=== PATIENT | male | born 1960 | race American Indian/Alaskan Native ===

== ENCOUNTER 2017-04-18 04:55 | Emergency (ER) | payer OTHER ==
[2017-04-18 05:03] VITALS: BP 163/150
--- NOTE | 2017-04-18 05:29 | EDM.PDOC ---
<Shaheed Constantino - Last Filed: 04/18/17 07:45> ED HPI GENERAL MEDICAL PROBLEM - General Chief Complaint: Respiratory Problem Stated Complaint: [facility] Time Seen by Provider: 04/18/17 05:10 - Related Data Allergies Allergy/AdvReac Type Severity Reaction Status Date / Time No Known Allergies Allergy Verified 04/18/17 05:00 Home Meds: Home Meds Aspirin/Caffeine [[place] Back & Body Caplet] 500 mg PO DAILY 03/25/16 [History] Cyanocobalamin (Vitamin B12) [Vitamin B12] 1,000 mcg PO DAILY 03/25/16 [History] Hydrochlorothiazide 50 mg PO DAILY 03/25/16 [History] Lisinopril [Zestril] 40 mg PO DAILY 03/25/16 [History] SitaGLIPtin [Januvia] 100 mg PO DAILY 03/25/16 [History] amLODIPine [Norvasc] 5 mg PO DAILY 03/25/16 [History] ED RESPIRATORY PROCEDURES - Endotracheal Intubation Time of Intubation: 07:36 ET Intubation Indication: Respiratory Failure Preparation: Suction, Balloon Tested, BVM Set Up, Difficult Airway Equip Airway Assessment: Obese, Large Tongue Pre-Oxygenation: Assisted with BVM, 100% FiO2 Anesthesia Meds: Etomidate (48 mg IVP), Vecuronium (16 mg IVP) Placement: Orotracheal, Cuffed, Uncomplicated Placement Cords Visualized: Yes, Grade 3 ETT Size In mm: 8.0 Number of Attempts: 1 Confirmed By: CO2 Indicator, Bilateral Breath Sounds, Chest Xray Tube Secured By: By RT Course - Vital Signs Last Recorded V/S: Last Vital Signs Temp 37.1 C 04/18/17 05:00 Pulse 78 04/18/17 06:18 Resp 18 04/18/17 05:00 BP 163/150 H 04/18/17 05:00 Pulse Ox 91 L 04/18/17 05:00 - Orders/Labs/Meds Orders: Active Orders 24 hr Category Date Time Status Blood Glucose Check, Bedside [RC] ONETIME Care 04/18/17 05:23 Active Blood Glucose Check, Bedside [RC] ONETIME Care 04/18/17 08:18 Active EKG 12 Lead [EKG Documentation Completion] [RC] STAT Care 04/18/17 05:12 Active EKG Documentation Completion [RC] STAT Care 04/18/17 05:23 Active Oxygen Therapy [RC] ASDIRECTED Care 04/18/17 05:23 Active Oxygen Therapy [RC] ASDIRECTED Care 04/18/17 05:38 Active RT Aerosol Therapy [RC] ASDIRECTED Care 04/18/17 06:07 Active RT Aerosol Therapy [RC] ASDIRECTED Care 04/18/17 06:16 Active RT Aerosol Therapy [RC] ASDIRECTED Care 04/18/17 06:18 Active RT Aerosol Therapy [RC] ASDIRECTED Care 04/18/17 06:23 Active RT BiPAP/CPAP [RC] ASDIRECTED Care 04/18/17 05:52 Active ABG [BLOOD GAS ARTERIAL] [BG] Stat Lab 04/18/17 08:11 Ordered CULTURE BLOOD [BC] Stat Lab 04/18/17 05:50 Received CULTURE BLOOD [BC] Stat Lab 04/18/17 06:05 Received CULTURE URINE [RM] Stat Lab 04/18/17 05:34 Received Insulin Regular, Human [HumuLIN R] 100 unit Med 04/18/17 06:45 Active Sodium Chloride 0.9% [Normal Saline] 99 ml IV TITRATE Norepinephrine [Levophed] 4 mg Med 04/18/17 08:15 Active Dextrose 5% in Water 246 ml IV TITRATE Propofol [Diprivan 100 ML] 100 ml Med 04/18/17 08:30 Active IV TITRATE Blood Culture x2 Reflex Set [OM.PC] Stat Oth 04/18/17 05:26 Ordered Desired Level of Sedation (RASS) [AST] Click To Edit Oth 04/18/17 08:18 Ordered Medication Orders Insulin Human Regular 100 unit (/ Sodium Chloride) 100 mls @ 7 mls/hr IV TITRATE IVANA; 7 UNIT/HR PRN Reason: Protocol Last Admin: 04/18/17 06:38 Dose: 7 unit/hr, 7 mls/hr Norepinephrine Bitartrate 4 mg (/ Dextrose/Water) 250 mls @ 18.75 mls/hr IV TITRATE IVANA; 5 MCG/MIN PRN Reason: Protocol Propofol (Diprivan 100 Ml) 100 mls @ 0 mls/hr IV TITRATE IVANA; 5 MCG/KG/MIN PRN Reason: Protocol Labs: Laboratory Tests 04/18/17 04/18/17 04/18/17 Range/Units 05:09 05:09 05:20 WBC 15.79 H (4.23-9.07) K/mm3 RBC 4.16 L (4.63-6.08) M/mm3 Hgb 11.2 L (13.7-17.5) gm/L Hct 36.6 L (40.1-51.0) % MCV 88.0 (79.0-92.2) fl MCH 26.9 (25.7-32.2) pg MCHC 30.6 L (32.2-35.5) g/dl RDW Std Deviation 50.6 H (35.1-43.9) fL Plt Count 166 (163-337) K/mm3 MPV 10.9 (9.4-12.3) fl Neutrophils % (Manual) 88 H (40-60) % Band Neutrophils % 1 (0-10) % Lymphocytes % (Manual) 7 L (20-40) % Atypical Lymphs % 0 % Monocytes % (Manual) 2 (2-10) % Eosinophils % (Manual) 1 (0.8-7.0) % Basophils % (Manual) 1 (0.2-1.2) Platelet Estimate Adequate RBC Morph Comment Normal PT (8.0-13.0) SECONDS INR Puncture Site Lt radial ABG pH 7.09 L* (7.35-7.45) ABG pCO2 78.8 H* (35.0-45.0) mmHg ABG pO2 135.0 H (80.0-100.0) mmHg ABG HCO3 23.0 (22.0-26.0) meq/L ABG O2 Saturation 95.8 L (96.0-97.0) % ABG Base Excess -7.9 L (-2-2.0) Ga Test Positive A-a Gradient 406 mmHg O2 Delivery Device Nonrebreather Oxygen Flow Rate 15.0 FiO2 100.00 (21.00-100.00) % Tidal Volume cc PEEP cmH20 Pressure Support cmH2O Sodium 136 (136-145) mEq/L Potassium 7.0 H* (3.5-5.1) mEq/L Chloride 99 (98-107) mEq/L Carbon Dioxide 25 (21-32) mEq/L Anion Gap 19.0 H (5-15) BUN 63 H (7-18) mg/dL Creatinine 8.7 H (0.7-1.3) mg/dL Est Cr Clr Drug Dosing TNP Estimated GFR (MDRD) 6 (>60) mL/min BUN/Creatinine Ratio 7.2 L (14-18) Glucose 460 H (74-106) mg/dL POC Glucose (70-105) mg/dL Lactic Acid (0.4-2.0) mmol/L Calcium 7.4 L (8.5-10.1) mg/dL Total Bilirubin 0.2 (0.2-1.0) mg/dL AST 37 (15-37) U/L ALT 38 (16-63) U/L Alkaline Phosphatase 94 (46-116) U/L CK-MB (CK-2) 8.3 H (0-3.6) ng/ml Troponin I 0.262 H* (0.00-0.056) ng/mL C-Reactive Protein 1.8 H* (<1.0) mg/dL NT-Pro-B Natriuret Pep 63115 H (0-125) pg/mL Total Protein 7.5 (6.4-8.2) g/dl Albumin 3.3 L (3.4-5.0) g/dl Globulin 4.2 gm/dL Albumin/Globulin Ratio 0.8 L (1-2) Urine Color (Yellow) Urine Appearance (Clear) Urine pH (5.0-8.0) Ur Specific [place] (1.005-1.030) Urine Protein (Negative) Urine Glucose (UA) (Negative) Urine Ketones (Negative) Urine Occult Blood (Negative) Urine Nitrite (Negative) Urine Bilirubin (Negative) Urine Urobilinogen (0.2-1.0) Ur Leukocyte Esterase (Negative) Urine RBC (0-5) /hpf Urine WBC (0-5) /hpf Ur Epithelial Cells (0-5) /hpf Amorphous Sediment (NOT SEEN) /hpf Urine Bacteria (FEW) /hpf Urine Mucus (FEW) /hpf 04/18/17 04/18/17 04/18/17 Range/Units 05:34 05:50 05:50 WBC (4.23-9.07) K/mm3 RBC (4.63-6.08) M/mm3 Hgb (13.7-17.5) gm/L Hct (40.1-51.0) % MCV (79.0-92.2) fl MCH (25.7-32.2) pg MCHC (32.2-35.5) g/dl RDW Std Deviation (35.1-43.9) fL Plt Count (163-337) K/mm3 MPV (9.4-12.3) fl Neutrophils % (Manual) (40-60) % Band Neutrophils % (0-10) % Lymphocytes % (Manual) (20-40) % Atypical Lymphs % % Monocytes % (Manual) (2-10) % Eosinophils % (Manual) (0.8-7.0) % Basophils % (Manual) (0.2-1.2) Platelet Estimate RBC Morph Comment PT 11.1 (8.0-13.0) SECONDS INR 1.02 Puncture Site ABG pH (7.35-7.45) ABG pCO2 (35.0-45.0) mmHg ABG pO2 (80.0-100.0) mmHg ABG HCO3 (22.0-26.0) meq/L ABG O2 Saturation (96.0-97.0) % ABG Base Excess (-2-2.0) Ga Test A-a Gradient mmHg O2 Delivery Device Oxygen Flow Rate FiO2 (21.00-100.00) % Tidal Volume cc PEEP cmH20 Pressure Support cmH2O Sodium (136-145) mEq/L Potassium (3.5-5.1) mEq/L Chloride (98-107) mEq/L Carbon Dioxide (21-32) mEq/L Anion Gap (5-15) BUN (7-18) mg/dL Creatinine (0.7-1.3) mg/dL Est Cr Clr Drug Dosing Estimated GFR (MDRD) (>60) mL/min BUN/Creatinine Ratio (14-18) Glucose (74-106) mg/dL POC Glucose (70-105) mg/dL Lactic Acid 0.8 (0.4-2.0) mmol/L Calcium (8.5-10.1) mg/dL Total Bilirubin (0.2-1.0) mg/dL AST (15-37) U/L ALT (16-63) U/L Alkaline Phosphatase (46-116) U/L CK-MB (CK-2) (0-3.6) ng/ml Troponin I (0.00-0.056) ng/mL C-Reactive Protein (<1.0) mg/dL NT-Pro-B Natriuret Pep (0-125) pg/mL Total Protein (6.4-8.2) g/dl Albumin (3.4-5.0) g/dl Globulin gm/dL Albumin/Globulin Ratio (1-2) Urine Color Lauryn H (Yellow) Urine Appearance Slt cloudy H (Clear) Urine pH 7.0 (5.0-8.0) Ur Specific [place] 1.025 (1.005-1.030) Urine Protein 3+ H (Negative) Urine Glucose (UA) Trace H (Negative) Urine Ketones Negative (Negative) Urine Occult Blood 2+ H (Negative) Urine Nitrite Negative (Negative) Urine Bilirubin 1+ H (Negative) Urine Urobilinogen 0.2 (0.2-1.0) Ur Leukocyte Esterase 1+ H (Negative) Urine RBC 5-10 H (0-5) /hpf Urine WBC 20-30 H (0-5) /hpf Ur Epithelial Cells 0-5 (0-5) /hpf Amorphous Sediment Few H (NOT SEEN) /hpf Urine Bacteria Many H (FEW) /hpf Urine Mucus Few (FEW) /hpf 04/18/17 04/18/17 04/18/17 Range/Units 06:50 08:00 08:16 WBC (4.23-9.07) K/mm3 RBC (4.63-6.08) M/mm3 Hgb (13.7-17.5) gm/L Hct (40.1-51.0) % MCV (79.0-92.2) fl MCH (25.7-32.2) pg MCHC (32.2-35.5) g/dl RDW Std Deviation (35.1-43.9) fL Plt Count (163-337) K/mm3 MPV (9.4-12.3) fl Neutrophils % (Manual) (40-60) % Band Neutrophils % (0-10) % Lymphocytes % (Manual) (20-40) % Atypical Lymphs % % Monocytes % (Manual) (2-10) % Eosinophils % (Manual) (0.8-7.0) % Basophils % (Manual) (0.2-1.2) Platelet Estimate RBC Morph Comment PT (8.0-13.0) SECONDS INR Puncture Site Lt radial Rt radial ABG pH 7.19 L* 7.16 L* (7.35-7.45) ABG pCO2 65.3 H 67.7 H (35.0-45.0) mmHg ABG pO2 76.0 L 68.0 L (80.0-100.0) mmHg ABG HCO3 23.7 23.3 (22.0-26.0) meq/L ABG O2 Saturation 94.0 L 88.3 L (96.0-97.0) % ABG Base Excess -5.8 L (-2-2.0) Ga Test Positive A-a Gradient 73 295 mmHg O2 Delivery Device Bipap Ventilator Oxygen Flow Rate FiO2 36.00 70.00 (21.00-100.00) % Tidal Volume 450.0 cc PEEP 8.0 cmH20 Pressure Support 18.0 cmH2O Sodium (136-145) mEq/L Potassium (3.5-5.1) mEq/L Chloride (98-107) mEq/L Carbon Dioxide (21-32) mEq/L Anion Gap (5-15) BUN (7-18) mg/dL Creatinine (0.7-1.3) mg/dL Est Cr Clr Drug Dosing Estimated GFR (MDRD) (>60) mL/min BUN/Creatinine Ratio (14-18) Glucose (74-106) mg/dL POC Glucose 381 H (70-105) mg/dL Lactic Acid (0.4-2.0) mmol/L Calcium (8.5-10.1) mg/dL Total Bilirubin (0.2-1.0) mg/dL AST (15-37) U/L ALT (16-63) U/L Alkaline Phosphatase (46-116) U/L CK-MB (CK-2) (0-3.6) ng/ml Troponin I (0.00-0.056) ng/mL C-Reactive Protein (<1.0) mg/dL NT-Pro-B Natriuret Pep (0-125) pg/mL Total Protein (6.4-8.2) g/dl Albumin (3.4-5.0) g/dl Globulin gm/dL Albumin/Globulin Ratio (1-2) Urine Color (Yellow) Urine Appearance (Clear) Urine pH (5.0-8.0) Ur Specific [place] (1.005-1.030) Urine Protein (Negative) Urine Glucose (UA) (Negative) Urine Ketones (Negative) Urine Occult Blood (Negative) Urine Nitrite (Negative) Urine Bilirubin (Negative) Urine Urobilinogen (0.2-1.0) Ur Leukocyte Esterase (Negative) Urine RBC (0-5) /hpf Urine WBC (0-5) /hpf Ur Epithelial Cells (0-5) /hpf Amorphous Sediment (NOT SEEN) /hpf Urine Bacteria (FEW) /hpf Urine Mucus (FEW) /hpf Meds: Medications Generic Name Dose Route Start Last Admin Trade Name Freq PRN Reason Stop Dose Admin Insulin Human Regular 100 unit 100 mls @ 7 mls/hr 04/18/17 06:45 04/18/17 06: 38 / Sodium Chloride IV 7 unit/hr TITRATE IVANA 7 mls/hr Protocol Administration 7 UNIT/HR Norepinephrine Bitartrate 4 mg 250 mls @ 18.75 mls/hr 04/18/17 08:15 / Dextrose/Water IV TITRATE IVANA Protocol 5 MCG/MIN Propofol 100 mls @ 0 mls/hr 04/18/17 08:30 Diprivan 100 Ml IV TITRATE IVANA Protocol 5 MCG/KG/MIN Discontinued Medications Generic Name Dose Route Start Last Admin Trade Name Freq PRN Reason Stop Dose Admin Albuterol 10 mg 04/18/17 06:06 Proventil Neb Soln NEB 04/18/17 06:07 ONETIME ONE Albuterol Confirm 04/18/17 06:14 04/18/17 06:39 Proventil Administered 04/18/17 06:15 Not Given Dose 10 mg .ROUTE .STK-MED ONE Albuterol 10 mg 04/18/17 06:16 Proventil Neb Soln NEB 04/18/17 06:17 ONETIME ONE Albuterol 10 mg 04/18/17 10:00 Proventil Neb Soln NEB QIDRT IVANA Albuterol 2.5 mg 04/18/17 06:23 Proventil Neb Soln NEB 04/18/17 06:24 ONETIME ONE Albuterol 10 mg 04/18/17 06:45 04/18/17 06:18 Proventil NEB 04/18/17 06:46 10 mg ONETIME ONE Administration Calcium Gluconate 1 gm 04/18/17 06:07 04/18/17 06:20 Calcium Gluconate IVPUSH 04/18/17 06:08 1 gm ONETIME ONE Administration Etomidate Confirm 04/18/17 07:21 Amidate Administered 04/18/17 07:22 Dose 40 mg IVPUSH .STK-MED ONE Etomidate 48 mg 04/18/17 08:12 Amidate IVPUSH 04/18/17 08:13 ONETIME ONE Insulin Human Regular 100 unit 100 mls @ 0 mls/hr 04/18/17 06:15 / Sodium Chloride IV ASDIRECTED IVANA Protocol 7 UNITS/KG/HR Insulin Human Regular 100 unit 100 mls @ 7 mls/hr 04/18/17 06:45 / Sodium Chloride IV TITRATE IVANA 7 UNIT/HR Ceftriaxone Sodium 2 gm/ 100 mls @ 200 mls/hr 04/18/17 07:20 Sodium Chloride IV 04/18/17 07:49 ONETIME ONE Propofol Confirm 04/18/17 07:29 Diprivan 100 Ml Administered 04/18/17 07:30 Dose 100 mls @ as directed .ROUTE .STK-MED ONE Sodium Bicarbonate 50 meq 04/18/17 06:07 04/18/17 06:28 Sodium Bicarbonate 8.4% IVPUSH 04/18/17 06:08 50 meq ONETIME ONE Administration Vecuronium [place] Confirm 04/18/17 08:12 Vecuronium Administered 04/18/17 08:13 Dose 20 mg .ROUTE .STK-MED ONE Vecuronium [place] 16 mg 04/18/17 08:12 Vecuronium IVPUSH 04/18/17 08:13 ONETIME ONE Departure - Departure Disposition: DC/Tfer to [facility] Clinical Impression: Acute respiratory failure with hypercapnia, Hemodialysis patient, Hyperkalemia , diminished renal excretion, Elevated troponin I measurement, Bacteriuria with pyuria Hyperglycemia due to type 2 diabetes mellitus Qualifiers: Diabetes mellitus care home insulin use: without care home use Qualified Code(s ): E11.65 - Type 2 diabetes mellitus with hyperglycemia - Discharge Information Referrals: PCP,None [Primary Care Provider] - Forms: ED Department Discharge - My Orders Last 24 Hours: My Active Orders 04/18/17 05:12 EKG 12 Lead [EKG Documentation Completion] [RC] STAT 04/18/17 05:23 Blood Glucose Check, Bedside [RC] ONETIME EKG Documentation Completion [RC] STAT Oxygen Therapy [RC] ASDIRECTED 04/18/17 05:26 Blood Culture x2 Reflex Set [OM.PC] Stat 04/18/17 05:34 CULTURE URINE [RM] Stat 04/18/17 05:38 Oxygen Therapy [RC] ASDIRECTED 04/18/17 05:50 CULTURE BLOOD [BC] Stat 04/18/17 05:52 RT BiPAP/CPAP [RC] ASDIRECTED 04/18/17 06:05 CULTURE BLOOD [BC] Stat 04/18/17 06:07 RT Aerosol Therapy [RC] ASDIRECTED 04/18/17 06:16 RT Aerosol Therapy [RC] ASDIRECTED 04/18/17 06:18 RT Aerosol Therapy [RC] ASDIRECTED 04/18/17 06:23 RT Aerosol Therapy [RC] ASDIRECTED 04/18/17 06:45 Insulin Regular, Human [HumuLIN R] 100 unit Sodium Chloride 0.9% [Normal Saline] 99 ml IV TITRATE 04/18/17 08:11 ABG [BLOOD GAS ARTERIAL] [BG] Stat 04/18/17 08:15 Norepinephrine [Levophed] 4 mg Dextrose 5% in Water 246 ml IV TITRATE 04/18/17 08:18 Blood Glucose Check, Bedside [RC] ONETIME Desired Level of Sedation (RASS) [AST] Click To Edit 04/18/17 08:30 Propofol [Diprivan 100 ML] 100 ml IV TITRATE - Assessment/Plan Last 24 Hours: My Active Orders 04/18/17 05:12 EKG 12 Lead [EKG Documentation Completion] [RC] STAT 04/18/17 05:23 Blood Glucose Check, Bedside [RC] ONETIME EKG Documentation Completion [RC] STAT Oxygen Therapy [RC] ASDIRECTED 04/18/17 05:26 Blood Culture x2 Reflex Set [OM.PC] Stat 04/18/17 05:34 CULTURE URINE [RM] Stat 04/18/17 05:38 Oxygen Therapy [RC] ASDIRECTED 04/18/17 05:50 CULTURE BLOOD [BC] Stat 04/18/17 05:52 RT BiPAP/CPAP [RC] ASDIRECTED 04/18/17 06:05 CULTURE BLOOD [BC] Stat 04/18/17 06:07 RT Aerosol Therapy [RC] ASDIRECTED 04/18/17 06:16 RT Aerosol Therapy [RC] ASDIRECTED 04/18/17 06:18 RT Aerosol Therapy [RC] ASDIRECTED 04/18/17 06:23 RT Aerosol Therapy [RC] ASDIRECTED 04/18/17 06:45 Insulin Regular, Human [HumuLIN R] 100 unit Sodium Chloride 0.9% [Normal Saline] 99 ml IV TITRATE 04/18/17 08:11 ABG [BLOOD GAS ARTERIAL] [BG] Stat 04/18/17 08:15 Norepinephrine [Levophed] 4 mg Dextrose 5% in Water 246 ml IV TITRATE 04/18/17 08:18 Blood Glucose Check, Bedside [RC] ONETIME Desired Level of Sedation (RASS) [AST] Click To Edit 04/18/17 08:30 Propofol [Diprivan 100 ML] 100 ml IV TITRATE <Guzman Pavon - Last Filed: 04/18/17 09:24> ED HPI GENERAL MEDICAL PROBLEM - General Source of Information: Reports: Patient, EMS History Limitations: Reports: Physical Impairment, Respiratory Distress, Other ( Very poor historian.) - History of Present Illness INITIAL COMMENTS - FREE TEXT/NARRATIVE: 56-year-old male of [place] arrives in the ED per [facility] ambulance. Apparently he was struggling with respiratory issues and ambulance was summoned. Patient is a hemodialysis patient and receives dialysis 3 times weekly. Reports his last dialysis was Sunday this week and he is due for dialysis today. He feels very short of breath and taken 15 L/m by me nonrebreather mask to maintain his O2 sats in the 90s. Blood pressure reported by paramedics initially was 71 systolic. He is currently 103 on 66. Patient does answer most questions but is a very poor historian. He is a type II diabetic and uses Junuvia 100mg od for control. Denies any central chest pain over the weekend or last few days. Denies cough or sputum production. Denies fever or chills. He denies any dysuria makes very little urine anymore. He is morbidly obese and I suspect has sleep apnea syndrome. It's unclear whether he uses CPAP at bedtime. Onset: Today Onset Date: 04/18/17 Onset Time: 02:25 Duration: Hour(s): Location: Reports: Generalized Quality: Reports: Other (Short of breath) Severity: Severe Improves with: Reports: None Worsens with: Reports: Movement Context: Reports: Other. Denies: Activity, Exercise, Lifting, Sick Contact, Trauma Associated Symptoms: Reports: Confusion, Malaise, Shortness of Breath, Weakness (Generalized unable to weight-bear or walk.). 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 (see below) (None.) Past Medical History HEENT History: Reports: Impaired Vision Other HEENT History: Glasses Cardiovascular History: Reports: Hypertension Respiratory History: Reports: COPD, Sleep Apnea, SOB Genitourinary History: Reports: Dialysis Musculoskeletal History: Reports: Osteoarthritis Endocrine/Metabolic History: Reports: Diabetes, Type II Hematologic History: Reports: Blood Transfusion(s) - Past Surgical History Head Surgeries/Procedures: Reports: None GI Surgical History: Reports: Appendectomy Social & Family History - Family History Cardiac: Reports: Heart Failure - Tobacco Use Smoking Status *Q: Never Smoker - Caffeine Use Caffeine Use: Reports: Coffee - Recreational Drug Use Recreational Drug Use: No - Living Situation & Occupation Living situation: Reports: Single Occupation: Unemployed ED ROS GENERAL - Review of Systems Review Of Systems: See Below Constitutional: Reports: Malaise, Weakness, Fatigue, Decreased Appetite. Denies : Fever, Chills, Weight Loss HEENT: Reports: No Symptoms Respiratory: Reports: Shortness of Breath. Denies: Wheezing, Pleuritic Chest Pain, Cough, Sputum, Hemoptysis, Other Cardiovascular: Reports: Blood Pressure Problem (Chronic hypertension.), Dyspnea on Exertion (Mild in his lower extremities), Edema. Denies: Chest Pain , Claudication, Lightheadedness, Orthopnea, Palpitations ( chronically) Endocrine: Reports: Fatigue GI/Abdominal: Denies: Abdominal Pain, Constipation, Diarrhea, Decreased Appetite , Difficulty Swallowing, Distension, Flatus, Hematemesis, Hematochezia, Melena : Reports: Other (States he makes less than half a cup of urine per day.) Musculoskeletal: Reports: Back Pain, Joint Pain (Knees and hips back and neck at times) Skin: Reports: No Symptoms Neurological: Reports: No Symptoms Psychiatric: Reports: No Symptoms ED EXAM, GENERAL - Physical Exam Exam: See Below Exam Limited By: Other (Mildly confused. Appears acutely ill.) General Appearance: Lethargic (Breathing through a 15 L nonrebreather mask.), Moderate Distress Eye Exam: Bilateral Eye: Normal Inspection (No jaundice.) Throat/Mouth: Normal Inspection, Normal Oropharynx Head: Atraumatic, Normocephalic Neck: Normal Inspection, Supple, Non-Tender, Full Range of Motion, Other (No JVD.). No: Carotid Bruit, Lymphadenopathy (L), Lymphadenopathy (R), Thyromegaly Respiratory/Chest: No Respiratory Distress, Decreased Breath Sounds (Breath sounds are severely diminished throughout both lung powell. No adventitial sounds were appreciated as his breathing is quite shallow.). No: Rales, Rhonchi , Wheezing Cardiovascular: Extra Beats, Irregularly Irregular (Frequent ectopic beats appreciated. On the monitor they appear to be PVCs.). No: Normal Peripheral Pulses, JVD Peripheral Pulses: 0: Posterior Tibial (L), Posterior Tibial (R), Dorsalis Pedis (L), Dorsalis Pedis (R), 1+: Carotid (L), Carotid (R) (Very thick bull neck.), Radial (L), Radial (R) GI/Abdominal: Other (Abdominal girth limits ability to palpate solid organs but I question whether or not he has significant splenomegaly and perhaps hepatomegaly.) (Male) Exam: No Hernia Extremities: Pedal Edema (2+ edema in his lower extremities.) Neurological: Inattentive, Confused, Slow to Respond (Areflexic.). No: Alert, Oriented, CN II-XII Intact, Normal Cognition, Normal Gait, Normal Reflexes Skin Exam: Warm, Dry, Intact, Normal Color, No Rash EKG INTERPRETATION EKG Date: 04/18/17 Time: 05:15 Rhythm: NSR Rate (Beats/Min): 83 [place]: RAD-Right [place] Deviation P-Wave: Present QRS: Other (Nonspecific intraventricular conduction delay.) ST-T: Other (Abnormal repolarization pattern. No definitive ischemic changes.) QT: Prolonged Course - Orders/Labs/Meds Labs: Laboratory Tests 04/18/17 04/18/17 04/18/17 Range/Units 05:09 05:09 05:20 WBC 15.79 H (4.23-9.07) K/mm3 RBC 4.16 L (4.63-6.08) M/mm3 Hgb 11.2 L (13.7-17.5) gm/L Hct 36.6 L (40.1-51.0) % MCV 88.0 (79.0-92.2) fl MCH 26.9 (25.7-32.2) pg MCHC 30.6 L (32.2-35.5) g/dl RDW Std Deviation 50.6 H (35.1-43.9) fL Plt Count 166 (163-337) K/mm3 MPV 10.9 (9.4-12.3) fl Neutrophils % (Manual) 88 H (40-60) % Band Neutrophils % 1 (0-10) % Lymphocytes % (Manual) 7 L (20-40) % Atypical Lymphs % 0 % Monocytes % (Manual) 2 (2-10) % Eosinophils % (Manual) 1 (0.8-7.0) % Basophils % (Manual) 1 (0.2-1.2) Platelet Estimate Adequate RBC Morph Comment Normal PT (8.0-13.0) SECONDS INR Puncture Site Lt radial ABG pH 7.09 L* (7.35-7.45) ABG pCO2 78.8 H* (35.0-45.0) mmHg ABG pO2 135.0 H (80.0-100.0) mmHg ABG HCO3 23.0 (22.0-26.0) meq/L ABG O2 Saturation 95.8 L (96.0-97.0) % ABG Base Excess -7.9 L (-2-2.0) Ga Test Positive A-a Gradient 406 mmHg O2 Delivery Device Nonrebreather Oxygen Flow Rate 15.0 FiO2 100.00 (21.00-100.00) % Tidal Volume cc PEEP cmH20 Pressure Support cmH2O Sodium 136 (136-145) mEq/L Potassium 7.0 H* (3.5-5.1) mEq/L Chloride 99 (98-107) mEq/L Carbon Dioxide 25 (21-32) mEq/L Anion Gap 19.0 H (5-15) BUN 63 H (7-18) mg/dL Creatinine 8.7 H (0.7-1.3) mg/dL Est Cr Clr Drug Dosing TNP Estimated GFR (MDRD) 6 (>60) mL/min BUN/Creatinine Ratio 7.2 L (14-18) Glucose 460 H (74-106) mg/dL POC Glucose (70-105) mg/dL Lactic Acid (0.4-2.0) mmol/L Calcium 7.4 L (8.5-10.1) mg/dL Total Bilirubin 0.2 (0.2-1.0) mg/dL AST 37 (15-37) U/L ALT 38 (16-63) U/L Alkaline Phosphatase 94 (46-116) U/L CK-MB (CK-2) 8.3 H (0-3.6) ng/ml Troponin I 0.262 H* (0.00-0.056) ng/mL C-Reactive Protein 1.8 H* (<1.0) mg/dL NT-Pro-B Natriuret Pep 10972 H (0-125) pg/mL Total Protein 7.5 (6.4-8.2) g/dl Albumin 3.3 L (3.4-5.0) g/dl Globulin 4.2 gm/dL Albumin/Globulin Ratio 0.8 L (1-2) Urine Color (Yellow) Urine Appearance (Clear) Urine pH (5.0-8.0) Ur Specific [place] (1.005-1.030) Urine Protein (Negative) Urine Glucose (UA) (Negative) Urine Ketones (Negative) Urine Occult Blood (Negative) Urine Nitrite (Negative) Urine Bilirubin (Negative) Urine Urobilinogen (0.2-1.0) Ur Leukocyte Esterase (Negative) Urine RBC (0-5) /hpf Urine WBC (0-5) /hpf Ur Epithelial Cells (0-5) /hpf Amorphous Sediment (NOT SEEN) /hpf Urine Bacteria (FEW) /hpf Urine Mucus (FEW) /hpf 04/18/17 04/18/17 04/18/17 Range/Units 05:34 05:50 05:50 WBC (4.23-9.07) K/mm3 RBC (4.63-6.08) M/mm3 Hgb (13.7-17.5) gm/L Hct (40.1-51.0) % MCV (79.0-92.2) fl MCH (25.7-32.2) pg MCHC (32.2-35.5) g/dl RDW Std Deviation (35.1-43.9) fL Plt Count (163-337) K/mm3 MPV (9.4-12.3) fl Neutrophils % (Manual) (40-60) % Band Neutrophils % (0-10) % Lymphocytes % (Manual) (20-40) % Atypical Lymphs % % Monocytes % (Manual) (2-10) % Eosinophils % (Manual) (0.8-7.0) % Basophils % (Manual) (0.2-1.2) Platelet Estimate RBC Morph Comment PT 11.1 (8.0-13.0) SECONDS INR 1.02 Puncture Site ABG pH (7.35-7.45) ABG pCO2 (35.0-45.0) mmHg ABG pO2 (80.0-100.0) mmHg ABG HCO3 (22.0-26.0) meq/L ABG O2 Saturation (96.0-97.0) % ABG Base Excess (-2-2.0) Ga Test A-a Gradient mmHg O2 Delivery Device Oxygen Flow Rate FiO2 (21.00-100.00) % Tidal Volume cc PEEP cmH20 Pressure Support cmH2O Sodium (136-145) mEq/L Potassium (3.5-5.1) mEq/L Chloride (98-107) mEq/L Carbon Dioxide (21-32) mEq/L Anion Gap (5-15) BUN (7-18) mg/dL Creatinine (0.7-1.3) mg/dL Est Cr Clr Drug Dosing Estimated GFR (MDRD) (>60) mL/min BUN/Creatinine Ratio (14-18) Glucose (74-106) mg/dL POC Glucose (70-105) mg/dL Lactic Acid 0.8 (0.4-2.0) mmol/L Calcium (8.5-10.1) mg/dL Total Bilirubin (0.2-1.0) mg/dL AST (15-37) U/L ALT (16-63) U/L Alkaline Phosphatase (46-116) U/L CK-MB (CK-2) (0-3.6) ng/ml Troponin I (0.00-0.056) ng/mL C-Reactive Protein (<1.0) mg/dL NT-Pro-B Natriuret Pep (0-125) pg/mL Total Protein (6.4-8.2) g/dl Albumin (3.4-5.0) g/dl Globulin gm/dL Albumin/Globulin Ratio (1-2) Urine Color Lauryn H (Yellow) Urine Appearance Slt cloudy H (Clear) Urine pH 7.0 (5.0-8.0) Ur Specific Brandon 1.025 (1.005-1.030) Urine Protein 3+ H (Negative) Urine Glucose (UA) Trace H (Negative) Urine Ketones Negative (Negative) Urine Occult Blood 2+ H (Negative) Urine Nitrite Negative (Negative) Urine Bilirubin 1+ H (Negative) Urine Urobilinogen 0.2 (0.2-1.0) Ur Leukocyte Esterase 1+ H (Negative) Urine RBC 5-10 H (0-5) /hpf Urine WBC 20-30 H (0-5) /hpf Ur Epithelial Cells 0-5 (0-5) /hpf Amorphous Sediment Few H (NOT SEEN) /hpf Urine Bacteria Many H (FEW) /hpf Urine Mucus Few (FEW) /hpf 04/18/17 04/18/17 04/18/17 Range/Units 06:50 08:00 08:16 WBC (4.23-9.07) K/mm3 RBC (4.63-6.08) M/mm3 Hgb (13.7-17.5) gm/L Hct (40.1-51.0) % MCV (79.0-92.2) fl MCH (25.7-32.2) pg MCHC (32.2-35.5) g/dl RDW Std Deviation (35.1-43.9) fL Plt Count (163-337) K/mm3 MPV (9.4-12.3) fl Neutrophils % (Manual) (40-60) % Band Neutrophils % (0-10) % Lymphocytes % (Manual) (20-40) % Atypical Lymphs % % Monocytes % (Manual) (2-10) % Eosinophils % (Manual) (0.8-7.0) % Basophils % (Manual) (0.2-1.2) Platelet Estimate RBC Morph Comment PT (8.0-13.0) SECONDS INR Puncture Site Lt radial Rt radial ABG pH 7.19 L* 7.16 L* (7.35-7.45) ABG pCO2 65.3 H 67.7 H (35.0-45.0) mmHg ABG pO2 76.0 L 68.0 L (80.0-100.0) mmHg ABG HCO3 23.7 23.3 (22.0-26.0) meq/L ABG O2 Saturation 94.0 L 88.3 L (96.0-97.0) % ABG Base Excess -5.8 L (-2-2.0) Ga Test Positive A-a Gradient 73 295 mmHg O2 Delivery Device Bipap Ventilator Oxygen Flow Rate FiO2 36.00 70.00 (21.00-100.00) % Tidal Volume 450.0 cc PEEP 8.0 cmH20 Pressure Support 18.0 cmH2O Sodium (136-145) mEq/L Potassium (3.5-5.1) mEq/L Chloride (98-107) mEq/L Carbon Dioxide (21-32) mEq/L Anion Gap (5-15) BUN (7-18) mg/dL Creatinine (0.7-1.3) mg/dL Est Cr Clr Drug Dosing Estimated GFR (MDRD) (>60) mL/min BUN/Creatinine Ratio (14-18) Glucose (74-106) mg/dL POC Glucose 381 H (70-105) mg/dL Lactic Acid (0.4-2.0) mmol/L Calcium (8.5-10.1) mg/dL Total Bilirubin (0.2-1.0) mg/dL AST (15-37) U/L ALT (16-63) U/L Alkaline Phosphatase (46-116) U/L CK-MB (CK-2) (0-3.6) ng/ml Troponin I (0.00-0.056) ng/mL C-Reactive Protein (<1.0) mg/dL NT-Pro-B Natriuret Pep (0-125) pg/mL Total Protein (6.4-8.2) g/dl Albumin (3.4-5.0) g/dl Globulin gm/dL Albumin/Globulin Ratio (1-2) Urine Color (Yellow) Urine Appearance (Clear) Urine pH (5.0-8.0) Ur Specific Brandon (1.005-1.030) Urine Protein (Negative) Urine Glucose (UA) (Negative) Urine Ketones (Negative) Urine Occult Blood (Negative) Urine Nitrite (Negative) Urine Bilirubin (Negative) Urine Urobilinogen (0.2-1.0) Ur Leukocyte Esterase (Negative) Urine RBC (0-5) /hpf Urine WBC (0-5) /hpf Ur Epithelial Cells (0-5) /hpf Amorphous Sediment (NOT SEEN) /hpf Urine Bacteria (FEW) /hpf Urine Mucus (FEW) /hpf Meds: Medications Generic Name Dose Route Start Last Admin Trade Name Ariq PRN Reason Stop Dose Admin Insulin Human Regular 100 unit 100 mls @ 7 mls/hr 04/18/17 06:45 04/18/17 06: 38 / Sodium Chloride IV 7 unit/hr TITRATE IVANA 7 mls/hr Protocol Administration 7 UNIT/HR Norepinephrine Bitartrate 4 mg 250 mls @ 18.75 mls/hr 04/18/17 08:15 / Dextrose/Water IV TITRATE IVANA Protocol 5 MCG/MIN Propofol 100 mls @ 0 mls/hr 04/18/17 08:30 Diprivan 100 Ml IV TITRATE IVANA Protocol 5 MCG/KG/MIN Discontinued Medications Generic Name Dose Route Start Last Admin Trade Name Ariq PRN Reason Stop Dose Admin Albuterol 10 mg 04/18/17 06:06 Proventil Neb Soln NEB 04/18/17 06:07 ONETIME ONE Albuterol Confirm 04/18/17 06:14 04/18/17 06:39 Proventil Administered 04/18/17 06:15 Not Given Dose 10 mg .ROUTE .STK-MED ONE Albuterol 10 mg 04/18/17 06:16 Proventil Neb Soln NEB 04/18/17 06:17 ONETIME ONE Albuterol 10 mg 04/18/17 10:00 Proventil Neb Soln NEB QIDRT IVANA Albuterol 2.5 mg 04/18/17 06:23 Proventil Neb Soln NEB 04/18/17 06:24 ONETIME ONE Albuterol 10 mg 04/18/17 06:45 04/18/17 06:18 Proventil NEB 04/18/17 06:46 10 mg ONETIME ONE Administration Calcium Gluconate 1 gm 04/18/17 06:07 04/18/17 06:20 Calcium Gluconate IVPUSH 04/18/17 06:08 1 gm ONETIME ONE Administration Etomidate Confirm 04/18/17 07:21 Amidate Administered 04/18/17 07:22 Dose 40 mg IVPUSH .STK-MED ONE Etomidate 48 mg 04/18/17 08:12 Amidate IVPUSH 04/18/17 08:13 ONETIME ONE Insulin Human Regular 100 unit 100 mls @ 0 mls/hr 04/18/17 06:15 / Sodium Chloride IV ASDIRECTED IVANA Protocol 7 UNITS/KG/HR Insulin Human Regular 100 unit 100 mls @ 7 mls/hr 04/18/17 06:45 / Sodium Chloride IV TITRATE IVANA 7 UNIT/HR Ceftriaxone Sodium 2 gm/ 100 mls @ 200 mls/hr 04/18/17 07:20 Sodium Chloride IV 04/18/17 07:49 ONETIME ONE Propofol Confirm 04/18/17 07:29 Diprivan 100 Ml Administered 04/18/17 07:30 Dose 100 mls @ as directed .ROUTE .STK-MED ONE Sodium Bicarbonate 50 meq 04/18/17 06:07 04/18/17 06:28 Sodium Bicarbonate 8.4% IVPUSH 04/18/17 06:08 50 meq ONETIME ONE Administration Vecuronium [place] Confirm 04/18/17 08:12 Vecuronium Administered 04/18/17 08:13 Dose 20 mg .ROUTE .STK-MED ONE Vecuronium [place] 16 mg 04/18/17 08:12 Vecuronium IVPUSH 04/18/17 08:13 ONETIME ONE - Radiology Interpretation Free Text/Narrative:: 56-year-old male of [place] ancestry arrives per ambulance from [facility] he was found to be obtunded hypoxic and hypotensive. It's unclear how long he has been in this condition. Patient is extremely vague and not able to provide a useful history. It appears that he has a hemodialysis patient and he denies missing any of his recent dialysis appointments. He takes dialysis barely 3 times a week in [place]. From what I can ascertain his last hemodialysis appointment was on Sunday this week. Paramedics found his him to be hypotensive with a pressure of 71 systolic and O2 sats in the low 80s. He was placed on a nonrebreather at 15 L/m in which he arrived on. O2 sats on this were around 96-100%. Apparently he perked up with this treatment. Examination shows him to be morbidly obese and he is known to be a type II diabetic controlled with Januvia 100 mg daily. His other medications that are listed her antihypertensive medications. He indicates that he makes very little urine on a daily basis less than 1/2 cup. Patient appears acutely ill. I will have an ABG done to assess his oxygen needs. Chest x-ray portably. He is taking very shallow respirations and I'm not able to appreciate any adventitial sounds to suggest congestive failure although this is the likely cause of his hypoxemia. He also likely has severe sleep apnea although it's unclear whether he uses a CPAP machine or has ever been diagnosed. He suffers morbid obesity. He appears unkept and it's not clear whether his history is reliable. Routine labs including blood cultures and lactic acid ordered as well. - Re-Assessments/Exams Free Text/Narrative Re-Assessment/Exam: 04/18/17 05:45 ABGs reveal a pH of 7.09 with a PCO2 of 78.8 PaO2 of 135. Saturations are 95.8%. Base deficit is -8. I will try him on a trial of BiPAP on high pressures to see if he can tolerate this and we will repeat blood gases in 20-30 minutes time. Sugar at the bedside was found to be greater than 400. 04/18/17 06:09 Tolerating BiPAP at pressures of 18/8 with a respiratory rate of 14 heart rate is 80 sats are 93-94%. Tidal volume is 700-880 with a positive and inspiratory pressure of 18. His blood sugar is reportedly 460 in the lab. I will therefore start an insulin drip at 7 units per hour. His potassium was 7.0. He will be given sodium bicarbonate 50 mg IV and calcium gluconate 1 g IV after the line is thoroughly flushed. I will hold off and on the Kayexalate at this time. Will also be given 10 mg of albuterol via BiPAP machine. I do not have the rest of his labs to see what his renal function is but he is too sick from hospital and will be in need of transfer to a larger institution. Apparently has received care at [facility] in [place] in the past. 04/18/17 06:33 White count is 15.79 with a left shift of 88% neutrophils and 1 % bands suggestive of an underlying infective process. Hemoglobin is 11.2 with hematocrit of 36.6. MCV is 88.0. Platelet count is 166,000. ABGs initially revealed a pH of 7.09 with a PCO2 of 78.8. It is suspect that he has always a CO2 retainer but is normal ranges not available to me. PO2 was 135 on 15 L by nonrebreather mask. He was subsequent change to BiPAP. Sodium was 136 potassium is elevated at 7.0. Chloride is 99 bicarbonate was 25. Anion gap is 19.0. BUN was 63 with a creatinine of 8.7. EGFR is only 6. Glucose is elevated at 460. Calcium is 7.4. AST is 37 ALT was 38 alk phosphatase 94. See a MB fraction is elevated at 8.3 troponin I is elevated at 0.262 C-reactive protein is 1.8. BNP is 12,405. Patient therefore requires emergent dialysis at the bedside which cannot be carried out here. ABGs will be done shortly to see what kind of benefit we are achieving with BiPAP. 04/18/17 07:21 spoke to on-call radiation engineer Dr. Sparks at [facility] in [place] and he has accepted care of this patient. Reasons for sending MR respiratory failure with mild improvement of his pH on BiPAP. Dr. Sparks feels the patient needs to be intubated. This will be carried out in our department. The possibility of an infective process and sepsis exists with a positive urine analysis. Patient will be given Rocephin 2 g IV. His blood sugar will be checked prior to departure from the ED as he is on insulin at 7 units per hour. Potassium should be improved with insulin bicarbonate calcium gluconate and albuterol that was administered in this regard. He will require emergent bedside dialysis. 04/18/17 07:36: Patient intubated with an 8 Slovenian ET tube at 24 cm at the right corner of his lip. Portable chest x-ray reveals the tube to just be proximal to the carlos. Then settings are FiO2 of 50% with rate of 16 and tidal volume of 450. No PEEP at this time. 04/18/17 08:23 blood sugar was reported to be 381 at this time. Therefore insulin drip will be maintained at 7 units per hour. Blood gases are pending prior to transport by ground ambulance to [place]. 04/18/17 08:32: Changes were made to vent settings prior to discharge. PH came back at 7.16 PCO2 of 67.7 and a PO2 of 68. Adjustments to vent settings included an increase in the FiO2 to 70% increased rate to 18 and tidal volume increased to 500. Patient is currently on levo fed at 5 mcg/m to maintain a BP of 104/68 propofol drip is running at 0.5 mg/kg which is 80 mg at this time. Patient is likely to need at least 1 dose of vecuronium 16 mg en route to [place] and a second dose was provided to the paramedics in case further dose as needed before they reach their final destination. Departure - Departure Time of Disposition: 08:40 Condition: Critical
[2017-04-18] MEDS ORDERED: Albuterol 0.083% 2.5 MG/3 ML Neb Soln NEB ONE ×3 (06:06→06:23)
[2017-04-18] MEDS ORDERED: Calcium Gluconate 10% 1 GM/10 ML SDV IVPUSH ONE (06:07)
[2017-04-18] MEDS ORDERED: Sodium Bicarbonate 8.4% 50 MEQ/50 ML Syringe IVPUSH ONE (06:07)
[2017-04-18] MEDS ORDERED: Albuterol 0.5% 2.5 MG/0.5 ML Neb Soln ONE (06:14)
[2017-04-18] MEDS ORDERED: Albuterol 0.5% 2.5 MG/0.5 ML Neb Soln NEB ONE (06:45)
[2017-04-18] MEDS ORDERED: cefTRIAXone 2 GM in Sodium Chloride 0.9% 100 ML IV ONE (07:20)
[2017-04-18] MEDS ORDERED: Etomidate 2 MG/ML 20 ML SDV IVPUSH ONE ×3 (07:21→08:12)
[2017-04-18] MEDS ORDERED: Water For Injection, Sterile 10 ML SDV ONE (08:00)
[2017-04-18] MEDS ORDERED: Norepinephrine 4 MG in Dextrose 5% in Water 246 ML IV SCH ×2 (08:15)
--- NOTE | 2017-04-18 09:10 | CR ---
Chest: Frontal view of the chest was obtained. Comparison: Prior chest x-ray of 03/25/16. Endotracheal tube is seen. Tip of tube lies slightly above the carlos. Nasogastric tube is seen with tip lying within the region of the stomach. Poor inspiratory film is seen. Heart is enlarged although this finding is accentuated from technique. I do not see any definite acute pulmonary densities on this limited exam. Impression: 1. Tip of endotracheal tubes lies slightly above the carlos. Nasogastric tube with tip projected in the area of the stomach. 2. Poor inspiratory study, no definite acute process is appreciated. Diagnostic code #3
[2017-04-18] MEDS ORDERED: Albuterol 0.083% 2.5 MG/3 ML Neb Soln NEB SCH (10:00)
== END 2017-04-18 08:45 ==
LOC: JD.ED 04:55
DX: J96.02 Acute respiratory failure with hypercapnia (principal); E87.5 Hyperkalemia; N28.89 Other specified disorders of kidney and ureter; E11.65 Type 2 diabetes mellitus with hyperglycemia; R82.71 Bacteriuria; I10 Essential (primary) hypertension; J44.9 Chronic obstructive pulmonary disease, unspecified; R79.89 Other specified abnormal findings of blood chemistry; Z79.82 Long term (current) use of aspirin; Z79.899 Other long term (current) drug therapy; Z99.2 Dependence on renal dialysis
CPT/HCPCS: 31500; 36415; 36600; 51702; 71010; 80053; 81001; 82553; 82803; 82962; 83605; 83880; 84484; 85025; 85610; 86140; 87040; 87086; 93005; 94640; 94660; 96365; 96366; 96368; 96375; 99285; J0610; J1817; J7030; J7060; P9612; 93010; 99284-25; J3490